=== PATIENT | female | born 1995 | race African-American/Black ===

== ENCOUNTER 2017-05-29 15:26 | Emergency (ER) | payer OTHER ==
[~2017-05-29] VITALS: Ht 167.6 cm; Wt 66.0 kg
[2017-05-29 15:29] VITALS: BP 112/78; PULSE 80; RESP 18; TEMP 98.6; O2SAT 100
[2017-05-29 15:49] VITALS: BP 113/65; PULSE 94; RESP 19; O2SAT 99
--- NOTE | 2017-05-29 15:55 | PD ---
HPI Chief Complaint: Injury Time Seen by Provider: 15:39 Travel History International Travel<30 days: No Contact w/Intl Traveler<30days: No Traveled to known affect area: No History of Present Illness HPI 22yo F with PMH of left shoulder dislocation here with c/o left shoulder dislocation while playing basketball. Pt said she had it a few times before and always left shoulder. Last time was about 1 year ago. Denies any other injuries. Denies any fever, chest pain, sob, n/v, abdominal pain, focal weakness or numbness. PFSH Past Medical History Musculoskeletal: Yes (frequent left shoulder dislocations) Tetanus Vaccination: < 5 Years Influenza Vaccination: No ?: Not Past Surgical History Surgical History: No Previous Surgery Social History Alcohol Use: No Tobacco Use: No Substance Use: No Allergies-Medications (Allergen,Severity, Reaction): Coded Allergies: No Known Allergies (Unverified , 05/29/17) Reported Meds & Prescriptions Reported Meds & Active Scripts Active No Active Prescriptions or Reported Medications Review of Systems Except as stated in HPI: all other systems reviewed are Neg Physical Exam Narrative GENERAL: 22yo F not in distress. SKIN: Focused skin assessment warm/dry. HEAD: Atraumatic. Normocephalic. CARDIOVASCULAR: Regular rate and rhythm. No murmur appreciated. RESPIRATORY: No accessory muscle use. Clear to auscultation. Breath sounds equal bilaterally. GASTROINTESTINAL: Abdomen soft, non-tender, nondistended. MUSCULOSKELETAL: LUE: +Anterior dislocation. Radial pulse 2+. Sensation intact. NEUROLOGICAL: Awake and alert. No obvious cranial nerve deficits. Motor grossly within normal limits. Normal speech. PSYCHIATRIC: Appropriate mood and affect; insight and judgment normal. Data Data Last Documented VS Vital Signs Date Time Temp Pulse Resp B/P (MAP) Pulse Ox O2 Delivery O2 Flow Rate FiO2 05/29/17 18:33 05/29/17 18:00 65 14 99 05/29/17 17:30 Room Air 05/29/17 16:48 2.00 05/29/17 15:29 98.6 Orders Orders Shoulder, Limited(2vws) (05/29/17 ) Propofol 500 Mg/50 Ml Inj (Diprivan 500 (05/29/17 16:30) Morphine Inj (Morphine Inj) (05/29/17 16:30) Shoulder, Limited(2vws) (05/29/17 ) Ed Discharge Order (05/29/17 18:13) Sling And Swathe (05/29/17 ) [facility] Medical Decision Making Medical Screen Exam Complete: Yes Emergency Medical Condition: Yes Differential Diagnosis Shoulder dislocation vs. fracture Narrative Course 22yo F with recurrent left shoulder dislocation. Xray left shoulder showed anterior dislocation of left shoulder. Procedural sedation was used for reduction of left shoulder. Post reduction xray showed alignment following reduction of left shoulder anterior dislocation. Left arm placed in sling and swath. Pt was initially given morphine prior to reduction. Neurovascular intact. Pt has been observed in the ED and is fully awake and return precautions given. She is to follow up with orthopedic surgeon in [place] where she is from. Procedures Procedure Narrative Moderate Sedation: The patient was placed on a radiation monitor and pulse oximetry. An ambu bag and suction was immediately available at bedside. The patient was monitored by the nurse. Oxygen saturation, heart rate, and blood pressure were monitored. Procedural sedation was achieved using 80mg of propofol. The patient was observed until awake and alert. Procedural sedation time in attendance was 25 minutes. Diagnosis Primary Impression: Shoulder dislocation, recurrent Qualified Codes: M24.412 - Recurrent dislocation, left shoulder Patient Instructions: General Instructions Departure Forms: Tests/Procedures Additional Instructions: Please follow up with your orthopedic surgeon in [place]. Return to the ED if symptoms worsen. Med/Other Pt SpecificInfo: No Change to Meds Scripts No Active Prescriptions or Reported Meds Disposition: 01 DISCHARGE HOME Condition: Stable Gabby Wilkinson May 29, 2017 15:55
--- NOTE | 2017-05-29 16:14 | RADRPT ---
EXAM DATE/TIME: 05/29/2017 15:54 [facility] COMPARISON: No previous studies available for comparison. INDICATIONS : Pain, dislocation. MEDICAL HISTORY : None. SURGICAL HISTORY : None. ENCOUNTER: Initial ACUITY: 1 day PAIN SCORE: 10/10 LOCATION: Left upper extremity shoulder. FINDINGS: There is anterior dislocation of left shoulder. No acute fractures identified. CONCLUSION: 1. Anterior dislocation of the left shoulder. Roger Salgado MD on May 29, 2017 at 16:11 Board Certified Radiologist. This report was verified electronically.
[2017-05-29] MEDS ORDERED: PROPOFOL 500 MG/50 ML BTL IV ONE (16:30)
[2017-05-29] MEDS ORDERED: MORPHINE SULFATE 4 MG/ML INJ IV PUSH ONE (16:30)
[2017-05-29 16:48] VITALS: O2SAT 100
--- NOTE | 2017-05-29 17:11 | RADRPT ---
EXAM DATE/TIME: 05/29/2017 16:52 [facility] COMPARISON: SHOULDER LEFT LTD (2VWS), May 29, 2017, 15:54. INDICATIONS : Post reduction left shoulder. MEDICAL HISTORY : None. SURGICAL HISTORY : None. ENCOUNTER: Subsequent ACUITY: 1 day PAIN SCORE: Non-responsive. LOCATION: Left shoulder. FINDINGS: Interval reduction of anterior left shoulder dislocation. There is now anatomic alignment of the jennifer ohumeral joint. Humerus appears intact without evidence for acute fracture. Bony glenoid also appears intact. Remainder of the exam is unchanged. CONCLUSION: 1. Anatomic alignment following reduction of left shoulder anterior dislocation. Donaldo Gifford MD on May 29, 2017 at 17:07 Board Certified Radiologist. This report was verified electronically.
[2017-05-29 17:30] VITALS: BP 99/52; PULSE 63; RESP 16; O2SAT 99
[2017-05-29 18:00] VITALS: BP 106/51; PULSE 65; RESP 14; O2SAT 99
== END 2017-05-29 18:35 | disposition home or self-care (01) ==
LOC: NEPE 15:26
DX: M24.412 Recurrent dislocation, left shoulder (principal)
CPT/HCPCS: 23650; 73030; 96374; 99152; 99285; J2270